=== PATIENT | female | born 1980 | race Caucasian/White ===

== ENCOUNTER 2016-07-11 10:38 | Emergency (ER) | payer MEDICAID ==
[~2016-07-11] VITALS: Wt 78.0 kg
[2016-07-11 12:31] LABS: ADD SCAN DIFF NO
[2016-07-11 12:38] LABS: ADD UMIC YES; BASOPHILS % 0.5 % (0.0-2.0); EOSINOPHILS % 0.3 % (0.0-7.0); HEMATOCRIT 41.8 % (37.0-47.0); LYMPHOCYTES # 2.4 10^3/ul (0.8-2.9); LYMPHOCYTES % 35.7 % (15.0-51.0); MEAN CORPUSCULAR HEMOGLOBIN 30.3 pg (29.0-33.0); MEAN CORPUSCULAR HGB CONC 33.5 g/dl (32.0-37.0); MEAN CORPUSCULAR VOLUME 90.5 fl (82.0-101.0); MEAN PLATELET VOLUME 10.2 fl (7.4-10.4); MONOCYTE # 0.6 10^3/ul (0.3-0.9); MONOCYTES % 8.6 % (0.0-11.0); NEUTROPHIL # 3.6 10^3/ul (1.6-7.5); NEUTROPHILS % 54.6 % (39.0-77.0); PLATELET COUNT 261 10^3/UL (140-415); RED BLOOD COUNT 4.62 10^6/ul (4.20-5.40); RED CELL DISTRIBUTION WIDTH 12.3 % (11.5-14.5); URINE BILIRUBIN (Dip) NEGATIVE (NEGATIVE); URINE BLOOD (Dip) 3+ (NEGATIVE); URINE COLOR LT. YELLOW (YELLOW); URINE GLUCOSE (Dip) NEGATIVE (NEGATIVE); URINE KETONES (Dip) NEGATIVE (NEGATIVE); URINE LEUKOCYTE ESTERASE (Dip) 1+ (NEGATIVE); URINE NITRITE (Dip) NEGATIVE (NEGATIVE); URINE TOTAL PROTEIN (Dip) TRACE (NEGATIVE); URINE UROBILINOGEN (Dip) 0.2 E.U./dL (0.1-1.0); WHITE BLOOD COUNT 6.6 10^3/ul (4.8-10.8)
[2016-07-11 12:55] LABS: BACTERIA,URINE FEW
--- NOTE | 2016-07-11 13:53 | RADRPT ---
PROCEDURE: US Pelvis. CLINICAL INDICATION: Vaginal bleeding, . TECHNIQUE: Multiple sonographic images of the pelvis were obtained utilizing a transabdominal and endovaginal technique. The images were reviewed on a PACS workstation. COMPARISON: None available. FINDINGS: The uterus is visualized and measures 7.5 x 3.4 x 4.8 cm. There is a intramural 1.9 x 1.4 cm fibroid in the anterior fundus. Endometrial canal demonstrates a hypoechoic 0.7 x 0.5 cm structure. No de finite gestational sac appreciated. The left ovary measures 2.0 x 1.3 x 1.6 cm. There is a slightly echogenic oval shaped structure contiguous with the right ovary which measures approximately 1.8 x 2.1 cm. There is no cystic component appreciated. There is no free fluid seen in the cul-de-sac. IMPRESSION: 1. No definite intrauterine gestation identified. Mildly echogenic right adnexal mass measuring 1.8 x 2.1 cm contiguous with the right ovary is seen. No definite cystic structure or free fluid seen to suggest an ectopic. A early IUP, missed AB or ectopic could have this appearance. Correlation w ith serial quantitative beta HCGs and follow-up ultrasound is suggested. 2. Heterogeneous 1.9 x 1.4 cm intramural fibroid in the anterior fundus of the uterus. RPTAT: [facility] Physician Pamela Date Time Electronically viewed and signed by Physician Pamela on 07/11/2016 13:52 /
--- NOTE | 2016-07-11 14:18 | ERD ---
ER Documentation Chief Complaint Date/Time DATE: 07/11/16 TIME: 14:16 Chief Complaint VAG BLEED 3 DAYS 6 WEEKS PREG HPI This 35-year-old female presents with vaginal bleeding for the last 3 days. She is approximately 6 weeks by dates. She is a G4 para 0. She denies fevers, vomiting or noticeable tissue although she did have some clots ROS All systems reviewed and are negative except as per history of present illness. PMhx/Soc History of Surgery: No Anesthesia Reaction: No Hx Neurological Disorder: No Hx Respiratory Disorders: No Hx Cardiac Disorders: No Hx Psychiatric Problems: No Hx Miscellaneous Medical Probl: No Hx Alcohol Use: No Hx Substance Use: No Hx Tobacco Use: No Smoking Status: Never smoker Physical Exam Vitals Vital Signs Date Time Temp Pulse Resp B/P Pulse Ox O2 Delivery O2 Flow Rate FiO2 07/11/16 10:40 98.0 90 18 133/77 99 Physical Exam Const: [] Alert, [id number], talkative Head: Atraumatic Eyes: Normal Conjunctiva ENT: Normal External Ears, Nose and Mouth. Neck: Full range of motion..~ No meningismus. Resp: Clear to auscultation bilaterally Cardio: Regular rate and rhythm, no murmurs Abd: Soft, non tender, non distended. Normal bowel sounds Skin: No petechiae or rashes Back: No midline or flank tenderness Ext: No cyanosis, or edema Neur: Awake and alert Psych: Normal Mood and Affect Result Diagram: 07/11/16 1225 Results 24 hrs Laboratory Tests Test 07/11/16 12:25 Basophils # 0.010^3/ul Basophils % 0.5% Beta HCG, Quantitative 147.0mIU/ml Eosinophils # 0.010^3/ul Eosinophils % 0.3% Hematocrit 41.8% Hemoglobin 14.0g/dl Lymphocytes # 2.410^3/ul Lymphocytes % 35.7% Mean Corpuscular Hemoglobin 30.3pg Mean Corpuscular Hemoglobin Concent 33.5g/dl Mean Corpuscular Volume 90.5fl Mean Platelet Volume 10.2fl Monocytes # 0.610^3/ul Monocytes % 8.6% Neutrophils # 3.610^3/ul Neutrophils % 54.6% Nucleated Red Blood Cells # 0.010^3/ul Nucleated Red Blood Cells % 0.0/100WBC Platelet Count 13815^3/UL Red Blood Count 4.6210^6/ul Red Cell Distribution Width 12.3% Urine Bacteria FEW Urine Bilirubin NEGATIVE Urine Clarity CLEAR Urine Color LT. YELLOW Urine Epithelial Cells FEW Urine Glucose NEGATIVE% Urine Hemoglobin 3+ Urine Ketones NEGATIVE Urine Leukocyte Esterase 1+ Urine Microscopic RBC 5-10/HPF Urine Microscopic WBC 2-5/HPF Urine Nitrite NEGATIVE Urine Specific [place] <=1.005 Urine Total Protein TRACE Urine Urobilinogen 0.2 E.U./dL Urine pH 6.0 White Blood Count 6.610^3/ul Procedures/MDM Quantitative hCG is 147. Patient is Rh+. Pelvic ultrasound shows no definite intrauterine gestation. There is a mildly echogenic right adnexal mass measuring 1.8 x 2.1 cm. No definite cystic structure to suggest ectopic. Differential includes early IUP, missed and ectopic . Patient showed no evidence of pain was amatory [id number] throughout the ED course. Patient has vaginal bleeding first trimester . Given the low hormone level I suspect she has incomplete or complete but 2 day follow-up recommended. She should otherwise return sooner for fevers, vomiting , worsening pain, new worsening symptoms otherwise 2 days as directed. There is no evidence of additional causes of abdominal pain such as appendicitis or acute abdomen. Urine shows 1+ leukocytes with few bacteria will be deferred given absence of symptoms. Departure Diagnosis: Primary Impression: Vaginal bleeding in patient at less than 20 weeks ges... Condition: Stable Patient Instructions: Bleeding During Early , Possible Miscarriage ( Threatened ) Additional Instructions: Findings consistent with likely miscarriage. Recommend recheck in 2 days to be sure. Recheck sooner for fevers, vomiting, new symptoms. See OB for follow-up. ALISE MCKEE MD Jul 11, 2016 14:18
[2016-07-11 15:04] VITALS: BP 129/75; PULSE 78; RESP 18; TEMP 98
== END 2016-07-11 15:04 | disposition home or self-care (01) ==
LOC: FTE 10:38
DX: O20.9 Hemorrhage in early pregnancy, unspecified (principal); Z3A.01 Less than 8 weeks gestation of pregnancy
CPT/HCPCS: 76801; 76817; 81001; 81003; 84702; 85025; 86900; 86901; Z7502

== ENCOUNTER 2016-07-14 06:05 | Emergency (ER) | payer MEDICAID ==
[~2016-07-14] VITALS: Ht 167.6 cm; Wt 69.5 kg
[2016-07-14 06:13] VITALS: Ht 167.6 cm; Wt 69.5 kg
--- NOTE | 2016-07-14 06:39 | ERD ---
ER Documentation Chief Complaint Date/Time DATE: 07/14/16 TIME: 06:36 Chief Complaint vag bleed x 4 days. was here 2 days ago for same. 5 weeks HPI This is a 35 year old female A3 presenting to the emergency department stating she is 6 weeks complaining of vaginal bleeding for 4 days. Patient states she uses about 1 pad per hour. She denies fevers or abdominal pain. Patient has been seen here 2 days ago with same complain, her ultrasound did not show a definite . Her [employer]ING [employer] WORKER is and she has seen him one week ago. ROS All systems reviewed and are negative except as per history of present illness. Medications Home Meds Active Scripts Acetaminophen* (Tylenol*) 325 Mg Tablet, 2 TAB PO Q6 Y for PAIN AND OR ELEVATED TEMP, #20 TAB Prov:CECILIA OROSCO PA-C 07/14/16 Allergies Allergies: Coded Allergies: No Known Drug Allergies (Verified Allergy, Unknown, 07/14/16) PMhx/Soc Medical and Surgical Hx: pt denies Medical Hx, pt denies Surgical Hx History of Surgery: No Anesthesia Reaction: No Hx Neurological Disorder: No Hx Respiratory Disorders: No Hx Cardiac Disorders: No Hx Psychiatric Problems: No Hx Miscellaneous Medical Probl: No Hx Alcohol Use: No Hx Substance Use: No Hx Tobacco Use: No Physical Exam Vitals Vital Signs Date Time Temp Pulse Resp B/P Pulse Ox O2 Delivery O2 Flow Rate FiO2 07/14/16 06:13 98.2 78 20 119/61 100 Physical Exam General: well-developed/well-nourished, in no apparent distress, non-toxic appearing HENT: NC/AT, bilateral tympanic membrane is normal with good cone of light, nares patent, oropharynx clear without exudates Eyes: Conjunctiva normal, PERRLA, EOMI Neck: Supple, no lymphadenopathy Pulm: CTA bilaterally, no rales, rhonchi, or wheezing heard CV: Normal S1S2 GI: Soft, non-distended, normal bowel sounds, non-tender to palpation , negative rosvings, negative leigh's Back: No midline tenderness, no masses, No CVAT Ext: No clubbing, cyanosis, or edema Neuro: Alert and Orientated, gait normal Skin: Intact, normal turgor Psych: Normal mood and mentation Result Diagram: 2/13/17 0638 Results 24 hrs Laboratory Tests Test 07/14/16 06:38 Basophils # 0.010^3/ul Basophils % 0.2% Beta HCG, Quantitative 32.4mIU/ml Eosinophils # 0.110^3/ul Eosinophils % 1.4% Hematocrit 39.9% Hemoglobin 13.7g/dl Lymphocytes # 3.310^3/ul Lymphocytes % 47.8% Mean Corpuscular Hemoglobin 31.1pg Mean Corpuscular Hemoglobin Concent 34.4g/dl Mean Corpuscular Volume 90.3fl Mean Platelet Volume 9.0fl Monocytes # 0.510^3/ul Monocytes % 6.6% Neutrophils # 3.010^3/ul Neutrophils % 44.0% Nucleated Red Blood Cells # 0.010^3/ul Nucleated Red Blood Cells % 0.0/100WBC Platelet Count 00009^3/UL Red Blood Count 4.4110^6/ul Red Cell Distribution Width 12.9% Urine Bilirubin NEGATIVE Urine Clarity CLEAR Urine Color LT. YELLOW Urine Glucose NEGATIVE% Urine Hemoglobin 1+ Urine Ketones NEGATIVE Urine Leukocyte Esterase TRACE Urine Microscopic RBC 0-2/HPF Urine Microscopic WBC 0-2/HPF Urine Nitrite NEGATIVE Urine Specific [place] 1.020 Urine Squamous Epithelial Cells FEW Urine Total Protein NEGATIVE Urine Urobilinogen 0.2 E.U./dL Urine pH 6.0 White Blood Count 6.910^3/ul Procedures/MDM This is a 35 year old female A3 presenting to the emergency department stating she is 6 weeks complaining of vaginal bleeding for 4 days. Patient states she uses about 1 pad per hour. She denies fevers or abdominal pain. Her [employer]ING [employer] WORKER is and she has seen him one week ago. Patient has been seen here 2 days ago with same complain, her ultrasound did not show a definite . Her beta-hcg was 147. Repeat lab work was done today. CBC did not show any evidence of leukocytosis or anemia. Beta hCG went down from 147-32, patient likely does not have a viable . Repeat ultrasound was done and radiologist stated: No intrauterine gestation visualized. 1.7 cm echogenic mass adjacent to the right ovary may represent an ectopic . However this may still represent a slightly exophytic hemorrhagic cyst or other echogenic mass within the right ovary. Early is not completely excluded. Follow-up ultrasound and HCG levels is recommended. Multiple fibroids within the uterus, some of which are submucosal. I have consulted my OB labor is induction brazer who have presented this case. The OB labor is suggested that patient is suitable to follow-up with her [employer] today. If patient is unable to follow-up with her [employer] WORK[employer] in the next 2 days she is able to return to the ER for repeat ultrasound and blood work. He just patient unlikely has a ectopic . Patient is very stable for discharge to follow-up with [employer]. Discussed return to the ER for any worsening signs or symptoms. Departure Diagnosis: Primary Impression: Vaginal bleeding Condition: Stable CECILIA OROSCO PA-C Jul 14, 2016 06:39
[2016-07-14 07:03] LABS: BASOPHILS % 0.2 % (0.0-2.0); EOSINOPHILS # 0.1 10^3/ul (0.0-0.5); EOSINOPHILS % 1.4 % (0.0-7.0); HEMATOCRIT 39.9 % (37.0-47.0); HEMOGLOBIN 13.7 g/dl (12.0-16.0); LYMPHOCYTES # 3.3 10^3/ul (0.8-2.9); LYMPHOCYTES % 47.8 % (15.0-51.0); MEAN CORPUSCULAR HEMOGLOBIN 31.1 pg (29.0-33.0); MEAN CORPUSCULAR HGB CONC 34.4 g/dl (32.0-37.0); MEAN CORPUSCULAR VOLUME 90.3 fl (82.0-101.0); MONOCYTE # 0.5 10^3/ul (0.3-0.9); MONOCYTES % 6.6 % (0.0-11.0); PLATELET COUNT 218 10^3/UL (140-440); RED BLOOD COUNT 4.41 10^6/ul (4.20-5.40); RED CELL DISTRIBUTION WIDTH 12.9 % (11.5-14.5); UNCORRECTED WBC 6.9 10^3/ul (4.8-10.8); WHITE BLOOD COUNT 6.9 10^3/ul (4.8-10.8)
[2016-07-14 07:06] LABS: ADD UMIC YES; URINE BILIRUBIN (Dip) NEGATIVE (NEGATIVE); URINE BLOOD (Dip) 1+ (NEGATIVE); URINE COLOR LT. YELLOW (YELLOW); URINE GLUCOSE (Dip) NEGATIVE (NEGATIVE); URINE KETONES (Dip) NEGATIVE (NEGATIVE); URINE LEUKOCYTE ESTERASE (Dip) TRACE (NEGATIVE); URINE NITRITE (Dip) NEGATIVE (NEGATIVE); URINE TOTAL PROTEIN (Dip) NEGATIVE (NEGATIVE); URINE UROBILINOGEN (Dip) 0.2 E.U./dL (0.1-1.0)
[2016-07-14 07:16] LABS: CONDITION 1
[2016-07-14 07:25] LABS: SQUAMOUS EPITHELIAL CELL,UR FEW; URINE RBCS 0-2 /HPF (0)
--- NOTE | 2016-07-14 07:32 | RADRPT ---
PROCEDURE: US Pelvis. CLINICAL INDICATION: vaginal bleeding TECHNIQUE: Multiple sonographic images of the pelvis were obtained utilizing a transabdominal and endovaginal technique. The images were reviewed on a PACS workstation. COMPARISON: 07/11/2016 FINDINGS: The uterus is normal in size and demonstrates a heterogeneous appearance of the myometrium. The uter us measures 7.9 x 4.0 x 4.6 cm. There are multiple hypoechoic masses in the uterus, measuring up to 2.4 cm, consistent with fibroids. Some of the fibroids appears submucosal. The endometrial stripe is homogeneous in appearance and has the thickness of 4 mm. No intrauterine gestation is noted. Normal Doppler flow is identified in both ovaries. The right ovary measures 3.0 x 1.8 x 1.8 cm. There is a 1.4 x 1.7 cm echogenic mass adjacent to the right ovary. The left ovary measures 2.2 x 1.4 x 1.4 cm. No free fluid is present within the pelvis.. RPTAT: AA IMPRESSION: No intrauterine gestation visualized. 1.7 cm echogenic mass adjacent to the right ovary may represent an ectopic . However this may still represent a slightly exophytic hemorrhagic cyst or other echogenic mass within the right o vary. Early is not completely excluded. Follow-up ultrasound and HCG levels is recommended. Multiple fibroids within the uterus, some of which are submucosal. .Omari Lowe MD, Date Time Electronically viewed and signed by .Omari Lowe MD, MD on 07/14/2016 07:32 .S/
[2016-07-14] MEDS ORDERED: ACET325T33 PO (08:15)
== END 2016-07-14 08:24 | disposition home or self-care (01) ==
LOC: FTE 06:05
DX: O20.9 Hemorrhage in early pregnancy, unspecified (principal); Z3A.01 Less than 8 weeks gestation of pregnancy
CPT/HCPCS: 36415; 76801; 76817; 81001; 84702; 85025; Z7502; 81003